=== PATIENT | male | born 1960 | race Caucasian/White ===

== ENCOUNTER 2020-03-21 05:24 | Inpatient (IN) | payer OTHER ==
[~2020-03-21] VITALS: Ht 182.9 cm; Wt 100.7 kg
[~2020-03-21 05:24] MED LIST: ANTIFUNGAL EX; ASPIRIN81 MG OR; ATENOLOL25 MG PO; BACLOFEN10 MG PO; BENADRYL 25MG C25 MG PO; BENADRYL 50MG C50 MG OR; BENADRYL25 MG OR; BUPROPION100 MG PO; CLONAZEPAM1 MG PO; FENOFIBRATE160 MG OR; FLONASE NASAL50 MCG; GABAPENTIN400 MG OR; LEVOTHYROXIN75 MCG PO; MEVACOR40 MG OR; ULTRAM50 M1 OR; ULTRAM50 MG OR; ZOCOR5 MG PO; [UNRECOGNIZED DRUG - MIXTURE] PO; [UNRECOGNIZED DRUG - OTHER] EX
--- NOTE | 2020-03-21 05:30 | NUR ---
BY EMS TO ROOM
--- NOTE | 2020-03-21 06:45 | NUR ---
REPORT TO ANGÉLICA GREGORY.
--- NOTE | 2020-03-21 07:15 | NUR ---
RECIEVED FO RECEIVED FOR CARE. RESTING IN ROOM, CALL FLORES IN REACH. GUARD AT BEDSIDE.
[2020-03-21] MEDS ORDERED: TRAMADOL HCL50 MG PO (07:43)
[2020-03-21 07:45] LABS: HEMATOCRIT 40.2 % (39.0-50.0); IMMATURE GRANULOCYTES 0.7 % (0.0-5.0); MEAN CELL VOLUME 86.5 fL CALC (80.0-100.0); MEAN CORPUSCULAR HGB CONC 32.3 g/dL CAL (32.0-36.0); NEUT# 2.82 thou/uL (1.82-7.42); RED BLOOD COUNT 4.65 mill/uL (4.70-6.10); RED CELL DISTRI WIDTH 13.8 % (11.5-15.5)
[2020-03-21] MEDS ORDERED: TOLNAFTATE XX (07:45)
[2020-03-21] MEDS ORDERED: NEURONTIN250 MG/5 M PO (07:45)
[2020-03-21] MEDS ORDERED: IBUPROFEN600 MG PO (07:47)
[2020-03-21] MEDS ORDERED: VENTOLIN HFA IN (07:48)
[2020-03-21] MEDS ORDERED: FLUOXETINE20 MG PO (07:49)
[2020-03-21] MEDS ORDERED: METOPROL TAR25 MG PO (07:50)
[2020-03-21] MEDS ORDERED: OMEGA-3 FISH1000 MG PO (07:50)
[2020-03-21 07:51] LABS: ALBUMIN 3.8 g/dL (3.2-5.0); ALKALINE PHOSPHATASE 51 u/l (38-126); BILIRUBIN, TOTAL 0.4 mg/dL (0.0-1.4); BUN 28 mg/dL (8-23); BUN/CREATININE RATIO 22 (12-20 (CALC)); CHLORIDE 99 mmol/l (95-108); CREATININE 1.3 mg/dL (0.7-1.3); GFR 56 ML/MIN (>=60 (CALC)); GFR FOR AFR.AMER. > 60 ML/MIN (>=60 (CALC)); SGOT/AST 62 u/l (19-48); TOTAL PROTEIN 7.1 g/dL (6.3-8.2)
[2020-03-21 07:57] LABS: ANION GAP 13 (6-22 (CALC)); CARBON DIOXIDE 25 mmol/l (22-30); SODIUM 132 mmol/l (137-146)
[2020-03-21] MEDS ORDERED: LEVOTHYROXIN125 MCG PO (10:19)
--- NOTE | 2020-03-21 10:36 | NUR ---
PATIENT REPOSITIONED IN BED FOR COMFORT. CALL FLORES IN PLACE,
[2020-03-21 10:59] LABS: URINE BILIRUBIN - DIPSTICK NEGATIVE (NEGATIVE); URINE BLOOD DIPSTICK TRACE-LYSED (NEGATIVE); URINE COLOR YELLOW; URINE GLUCOSE - DIPSTICK NEGATIVE (NEGATIVE); URINE KETONE NEGATIVE (NEGATIVE); URINE LEUK ESTERASE NEGATIVE (NEGATIVE); URINE NITRITE - DIPSTICK NEGATIVE (Negative); URINE PROTEIN - DIPSTICK 100 mg/dL (NEG-TRACE); URINE SPECIFIC GRAVITY 1.025; URINE UROBILINOGEN - DIPSTICK 0.2 E.U./dL (0.2)
[2020-03-21 11:01] LABS: URINE EPITHELIAL CELLS FEW EPI/hpf (0-FEW); URINE MUCUS MODERATE hpf (NONE-FEW); URINE RBC 0-2 RBC/hpf (0-5)
--- NOTE | 2020-03-21 11:49 | NUR ---
patient repostioned. Cardiac monitoring continues. Stable.
--- NOTE | 2020-03-21 12:10 | NUR ---
DR LAW IN TO SEE PATIENT.
--- NOTE | 2020-03-21 12:30 | NUR ---
PATIENT FINISHING LUNCH. CARDIAC MONITORING CONTINUES. PATIENT CONTINUES ON O2 VIA NC [address] LAW. PATIENT AWARE OF PENDING ADMISSION.
--- NOTE | 2020-03-21 13:26 | NUR ---
patient to bedside commode. Incontinent of mod amt of brown,liquid diarrhea. Pericare completed. Bed changed. Patient assisted comfortably in bed. cardiac and o2 sat monitoring continue. Patient stable.
--- NOTE | 2020-03-21 13:40 | NUR ---
report called to [facility] Sid[facility],Nurse receiving in sbar format.
--- NOTE | 2020-03-21 14:16 | NUR ---
Patient calm and sleeping. Monitoring continues. Waiting on transfer to [facility]
--- NOTE | 2020-03-21 14:50 | NUR ---
PT ARRIVED TO UNIT AT 1450 VIA STRETCHER WITH ER STAFF AND 1 GUARD; PLACED ON AIRBORNE/CONTACT PRECAUTIONS DUE TO POSITIVE COVID RESULTS ON 03/17/20. PT STOOD AND TOOK SMALL STEPS TO BED WITH 2 PERSON STAND BY ASSIST; UNSTEADY GAIT. RESPOSITIONED INTO SEMI FOWLERS IN BED WITH LEFT ANKLE SHACKLED TO BED. C/O MILD GENERALIZED ACHES WITH MOVEMENT. RESPIRATIONS EVEN AND SLIGHT LABORED WITH EXERTION ON OXYGEN 4L VIA NC. ORIENTED TO ROOM AND CALL LIGHT SYSTEM. PLAN OF CARE DISCUSSED. PT ENCOURAGED TO VERBALIZE CONCERNS. STATES UNDERSTANDING. SAFETY MEASURES IN PLACE. CALL LIGHT WITHIN REACH.
--- NOTE | 2020-03-21 15:00 | NUR ---
TRANSFERRED TO [facility] S[facility]. PATIENT STABLE.IV'S INTACT UPON ARRIVAL.
[2020-03-21 15:33] VITALS: BP 124/57
[2020-03-21 20:00] VITALS: BP 112/56
[2020-03-21 21:15] VITALS: BP 122/63
--- NOTE | 2020-03-21 21:15 | NUR ---
PT IN SEMI BURTON'S POSITION; A/O X4; NO COMPLAINTS OR CONCERNS VOICED AT THIS TIME; TELE MONITOR IN PLACE; VS OBTAINED, O2 SAT 89% ON 4L NC; ENCOURAGE PT TO COUGH, DEEP BREATHE AND ADJUSTED IN BED; O2 SAT UP TO 94%; ENCOURAGE USE OF CALL LIGHT IF ANY ASSISTANCE IS NEEDED; CALL FLORES WITHIN REACH; WILL CONTINUE TO MONITOR
[2020-03-22] VITALS: BP 109/57
--- NOTE | 2020-03-22 01:08 | NUR ---
PT RESTING WITH EYES CLOSED;NO S/SX OF DISTRESS NOTED; CALL FLORES WITHIN REACH; WILL CONTINUE TO MONITOR.
--- NOTE | 2020-03-22 03:43 | NUR ---
PT RESTING WITH EYES CLOSED; NO S/SX OF DISTRESS NOTED; WILL CONTINUE TO MONITOR
[2020-03-22 04:00] VITALS: BP 119/63
--- NOTE | 2020-03-22 04:27 | NUR ---
REPORT RECEIVED FROM ANGÉLICA RAYA. LAB AT BEDSIDE. PT C/O SORE THROAT. REPORTS WAKING UP "BREATHING HEAVY" BUT DENIES SOB. OXYGEN CONTINUES AT 4L VIA NC. GUARD AT BEDSIDE WITH LAB. PT REMAINS ON AIRBORNE/CONTACT PRECAUTIONS FOR POSITIVE COVID. CALL LIGHT WITHIN REACH.
[2020-03-22 06:05] LABS: HEMATOCRIT 40.8 % (39.0-50.0); IMMATURE GRANULOCYTES 0.6 % (0.0-5.0); MEAN CELL VOLUME 87.2 fL CALC (80.0-100.0); MEAN CORPUSCULAR HGB 27.8 pG CALC (26.0-32.0); MEAN CORPUSCULAR HGB CONC 31.9 g/dL CAL (32.0-36.0); NEUT# 1.96 thou/uL (1.82-7.42); RED BLOOD COUNT 4.68 mill/uL (4.70-6.10); RED CELL DISTRI WIDTH 14.3 % (11.5-15.5)
[2020-03-22 06:13] LABS: ALBUMIN 3.5 g/dL (3.2-5.0); ALKALINE PHOSPHATASE 61 u/l (38-126); BILIRUBIN, TOTAL 0.3 mg/dL (0.0-1.4); BUN 24 mg/dL (8-23); BUN/CREATININE RATIO 29 (12-20 (CALC)); CARBON DIOXIDE 26 mmol/l (22-30); CHLORIDE 103 mmol/l (95-108); CREATININE 0.9 mg/dL (0.7-1.3); GFR > 60 ML/MIN (>=60 (CALC)); GFR FOR AFR.AMER. > 60 ML/MIN (>=60 (CALC)); SGOT/AST 55 u/l (19-48); SODIUM 137 mmol/l (137-146); TOTAL PROTEIN 6.3 g/dL (6.3-8.2)
--- NOTE | 2020-03-22 06:17 | NUR ---
SPO2 UP TO 92% ON 6L VIA NC; PRONE POSITION ENCOURGED AND INSTRUCTED ON TCDB; PT STATES UNDERSTANDING. AM SYNTHROID GIVEN WHOLE WITH WATER.
[2020-03-22 06:28] LABS: ANION GAP 13 (6-22 (CALC)); C-REACTIVE PROTEIN 15.7 mg/dL (0-0.9); POTASSIUM 4.5 mmol/l (3.5-5.1)
--- NOTE | 2020-03-22 07:20 | NUR ---
PT note Patient is screened for PT intervention and no needs are identified at this time
[2020-03-22 07:45] VITALS: BP 113/55
--- NOTE | 2020-03-22 09:03 | NUR ---
DR. ALLEN AND KARINA REEVES AT BEDSIDE.
--- NOTE | 2020-03-22 10:15 | NUR ---
PT AMBULATED TO BATHROOM FOR BOWEL MOVEMENT; REPORTS SEVERAL EPISODES OF DIARRHEA. NOW SITTING UP IN CHAIR; ALERT AND ORIENTED.
--- NOTE | 2020-03-22 10:57 | NUR ---
SPO2 REMAINS BETWEEN 87-90% ON 4L; PT HAS SHALLOW BREATHING AND REPORTS SOB. OXYGEN TITRATED UP TO 5L AT THIS TIME. WILL CONTINUE TO MONITOR.
--- NOTE | 2020-03-22 11:27 | NUR ---
VENTOLIN INH GIVEN FOR SOB WITH GOOD EFFECT. PT TALKATIVE AND PLEASANT. ROCEPHIN COMPLETED AND ZITHROMAX NOW INFUSING WITH OUT DIFFICULTY; IV SITE APPEARS HEALTHY AND FLUSHES.
--- NOTE | 2020-03-22 12:39 | NUR ---
EMS IV SITE DICONTINUED. PT SITTING UP IN CHAIR FOR LUNCH; REQUESTS COFFEE. NO OTHER REQUESTS AT THIS TIME. SPO2 94% ON 6L NC; DURING EXETION AND TALKING SPO2 DECREASES TO 88%. CALL LIGHT WITHIN REACH.
[2020-03-22 15:00] VITALS: BP 117/59
--- NOTE | 2020-03-22 16:33 | NUR ---
HIGH FLOW NASAL CANNULA APPLIED WITH HUMIDIFIED OXYGEN AT 6L.
--- NOTE | 2020-03-22 18:10 | NUR ---
INCENTIVE SPIROMETER PROVIDED; PT GIVEN VERBAL EDUCATION AND INSTRUCTION. SPO2 85% ON 6L HF NC WHILE PERFORMING RETURN DEMONSTRATION. INSPIRATORY VOLUME ALMOST TO 1000; PT GETS VERY SOB DURING DEMONSTRATION WITH SHALLOW BREATHS. PT UP TO CHAIR FOR DINNER; SOB WITH EXERTION, BUT RESPIRATIONS EVEN AND UNLABORED AFTER BREATHING EXERCISES. CALL LIGHT WITHIN REACH.
[2020-03-22 20:00] VITALS: BP 131/56
--- NOTE | 2020-03-22 20:37 | NUR ---
PT MEDICATED ORDERS PROVIDE AND ASSESSMENT COMPLETED AT THIS TIME. PT IS SITTING IN RECLINER. OXYGEN SAT LEVELS 88% ON 6L HIGH-FLOW HUMIDIFIED OXYGEN. PT TAKING DEEP BREATHS THROUGH NC AND OUT PURSED LIPS WITH INSTRUCTION, SAT LEVELS @90% ON 7L HF. IS 1000 DEMONSTRATED AT THIS TIME. NO S/O DISTRESS, PT DENIES FEELING DISTRESSED OR SOB AT THIS TIME. WILL CONTINUE TO MONITOR. REPORTS DIAHRREA EARLIER THIS DAY. PT SHACKLED AT ANKLE AND GUARD X1 ENTERS ROOM WITH ME, BUT REMINAING OUTSIDE OF ROOM WHEN HOSPITAL STAFF LEAVES ROOM.
[2020-03-23] VITALS: BP 131/56
[2020-03-23 04:00] VITALS: BP 86/45
[2020-03-23 05:15] VITALS: BP 106/58
--- NOTE | 2020-03-23 05:17 | NUR ---
PT MEDICATED ORDERS PROVIDE AND URINAL EMPTIED OF 600CC OF DARK YELLOW CLEAR URINE. PT DENIES ANY OTHER NEEDS. OXYGEN NC IS OFF, PT REMINDED TO PLACE OXYGEN BACK ON AND ASKED IF HE NEEDED ASSISTANCE, HE STATED, "I JUST TOOK IT OFF." OXYGEN IS ON WHEN LEAVING THE ROOM
[2020-03-23 05:24] LABS: IMMATURE GRANULOCYTES 0.5 % (0.0-5.0); MEAN CELL VOLUME 86.6 fL CALC (80.0-100.0); MEAN CORPUSCULAR HGB 27.3 pG CALC (26.0-32.0); MEAN CORPUSCULAR HGB CONC 31.6 g/dL CAL (32.0-36.0); NEUT# 8.2 thou/uL (1.82-7.42); RED BLOOD COUNT 4.39 mill/uL (4.70-6.10); RED CELL DISTRI WIDTH 13.5 % (11.5-15.5)
[2020-03-23 05:46] LABS: ALBUMIN 3.3 g/dL (3.2-5.0); ALKALINE PHOSPHATASE 58 u/l (38-126); BILIRUBIN, TOTAL 0.3 mg/dL (0.0-1.4); BUN 26 mg/dL (8-23); BUN/CREATININE RATIO 28 (12-20 (CALC)); C-REACTIVE PROTEIN 6.3 mg/dL (0-0.9); CARBON DIOXIDE 28 mmol/l (22-30); CHLORIDE 104 mmol/l (95-108); CREATININE 0.9 mg/dL (0.7-1.3); GFR > 60 ML/MIN (>=60 (CALC)); GFR FOR AFR.AMER. > 60 ML/MIN (>=60 (CALC)); SGOT/AST 42 u/l (19-48); SODIUM 137 mmol/l (137-146)
[2020-03-23 05:47] LABS: ANION GAP 11 (6-22 (CALC))
[2020-03-23 06:01] LABS: POTASSIUM 5.6 mmol/l (3.5-5.1)
[2020-03-23 08:00] VITALS: BP 163/62
--- NOTE | 2020-03-23 09:00 | NUR ---
PT IS AWAKE, ALERT, ORIENTED X 3. LUNGS CLEAR BUT DIMINISHED, 6 LPM NC. PT DOES BECOME SOB WITH EXERTION PER COVID-19. PT UP WITH MINIMAL ASSIST, CAN AMBULATE TO BR WITHOUT DIFFICULTY.
--- NOTE | 2020-03-23 13:00 | NUR ---
PT SEEN BY DR ALLEN THIS MORNING, NO CHANGES TO PLAN OF CARE. PT CONTINUES OOB IN CHAIR OR IN BED DESIRED.
[2020-03-23 15:15] VITALS: BP 116/51
--- NOTE | 2020-03-23 17:14 | NUR ---
PT WITH GOOD QUESTIONS ABOUT CORONAVIRUS, DISCUSSION LASTING SEVERAL MINUTES. NO DISTRESS, NO SIGNIFICANT SHORTNESS OF BREATH.
[2020-03-23 19:00] VITALS: BP 141/58
--- NOTE | 2020-03-23 20:40 | NUR ---
PT MEDICATED AND ASSESSMENT COMPLETED AT THIS TIME. PT DENIES COUGH, SOB, N/V OR CP. PT IS ON 10L HIGH FLOW NC AT THIS TIME, WILL CONTINUE TO MONITOR FOR OXYGEN SAT LEVELS AND ATTEMPT TO TITRATE OXYGEN RATE DOWN TOLERATED. PT PROVIDED COKE AND SNACK AT THIS TIME. PT IS IN HIGH FOWLERS IN THE BED, REPORTS HAVING SAT UP IN RECLINER FOR "6 HOURS TODAY." DISCUSSED POC WITH PT AND ENCOURAGED HIM TO KEEP MOVING HE HAS BEEN. HE ALSO REPORTS THAT HE WAS UP TAKING A SHOWER EARLIER TODAY. PT APPEARS TO BE FEELING BETTER, BUT CONTINUES TO DESAT WHEN OXYGEN IS LOWERED AT THIS TIME. WILL CONTINUE TO MONITOR, CALL LIGHT W/IN REACH AND PT ENCOURAGED TO CALL NEEDS ARISE.
[2020-03-24] VITALS (12 sets, daily range): BP systolic 113–222; BP diastolic 51–104
--- NOTE | 2020-03-24 01:55 | NUR ---
Pt was sleeping, no s/o distress noted, he awoke to my entering the room and my voice. Oxygen nc was on pt's forehead not in the nare's. Oxygen sat levels 85% on RA at this time. Advised him to place oxygen nc back in nare's, he followed advice. Upon reevaluation of sat levels pt @92% on 9L at this time. Will continue to monitor, but advised pt to be sure and keep oxygen on due to oxygen levels dropping, he verbalized understanding.
--- NOTE | 2020-03-24 05:45 | NUR ---
PT MEDICATED ORDERS PROVIDE. PT WAS SLEEPING, BUT STATES HE IS GOING TO WATCH A LITTLE [place] [employer]IR[employer] NEWS. NO SO DISTRESS NOTED, PT REPORTS FEELING BETTER THIS AM.
--- NOTE | 2020-03-24 08:08 | NUR ---
RECIEVED RPORT FROM ANGÉLICA ALVARES. PT RESTING I SEMI FOWLERS POSITION UPON ENTERING ROOM. INTRODUCED SELF TO PT AND DISCUSSED POC. PT IS A/O X3. ASSESSMENT AND VITALS COMPLETED. RESPIRATIONS ARE SHALLOW. O2 SATING AT 70%. RESIRATORY CALLED. PT NOT IN ANY DISTRESS. HEART RHYTHM NORMAL WITH TELE IN PLACE. BOWEL SOUNDS ARE ACTIVE IN ALL QUADRANTS, LAST REPORTED BM 03/23/2020. RADIAL AND PEDAL PULSES ARE STRONG. #20G IN RAC FLUSHED, SITE APPEARS HEALTHY AND PATENT. SKIN IS COLD AND DRY. PT DENIES ANY PAIN OR NEEDS AT THIS TIME. ALL SAFETY AND ISOLATION PRECAUTIONS AR JONI PLACE WIHT CALL LIGHT IN REACH. WILL CONTINUE TO MONITOR
--- NOTE | 2020-03-24 09:21 | NUR ---
[facility] TO TRANSFER PT TO ICU. CALLED TO RECIEVE BED. PT ASSIGNED TO ICU BED 4. AWAITING TO BE TRANSPORTED. RESPIRATIONS REMIAN SHALLOW ON 10L NC. PT DENIES ANY PAIN AT THIS TIME. ALL SAFETY AND ISOLATION PRECAUTIONS REMAIN IN PLACE WIHT GUARD OUTSIDE DOOR. WILL CONTINUE TO MONITOR
--- NOTE | 2020-03-24 10:21 | NUR ---
PT TRANSFERED TO ICU VIA BED ACCOMPAINED BY CAMPOS AND ALEJA LORD. BEDSIDE REPORT GIVEN TO MELVI COTTRELL
--- NOTE | 2020-03-24 10:25 | NUR ---
pt arrived from ca via bed with staff. c/o chills
--- NOTE | 2020-03-24 12:30 | NUR ---
PT IS RELAXING IN BED WITH NO DISTRESS NOTED. IV SITE IS FREE FROM REDNESS OR EDEAM. GUARD SITTING OUTSIDE OF THE ROOM.
--- NOTE | 2020-03-24 12:45 | NUR ---
PT GUARD HAD RELIEF. PT IS RELAXING IN BED ENCOURAGING TO KEEP O2 ON. SATS ARE NOW COMING BACK TO 89% WAS 72
--- NOTE | 2020-03-24 15:09 | NUR ---
PT FEEING WARM. CHECKED TEMP IS 99.5. ROOM IS WARM AND MANY BLANKETS
--- NOTE | 2020-03-24 15:37 | NUR ---
PT IS SITTING ON THE BSC FOR A CHAIR. INFORMED THIS AUTOMATIC SPLICING MACHINE OPERATOR"THE DR DOESN'T WANT ME TO STAY IN THE BED ALL DAY".
--- NOTE | 2020-03-24 16:23 | NUR ---
PT BACK INTO BED .
--- NOTE | 2020-03-24 18:30 | NUR ---
PT INSISTED ON A SHOWER. EXPLAINED "NO SHOWERS" GAVE BED BATH AND CHANGED SOME LINEN AFTER THE SPILL FROM DINNER. INFORMED PT OF BEING IN ICU AND ALL THE LINES HOOKED UP TO HIM MAKES A RISK FOR HIM TO GO TO THE BATHROOM. HE CAN USE THE BSC. JUST NEEDS TO CALL ON THE CALL FLORES. DRINKS A LOT OF WATER.
--- NOTE | 2020-03-24 20:10 | NUR ---
RECEIVED REPORT FROM DAY NURSE. REPORTED PATIENT MAINTAIN 91-92% O2 SATURATION. PATIENT CURRENTLY OXYGENATING IN THE 80S WITH DIFFICULTY REACHING 90%. PATIENT DOES NOT COMPLAIN OF DIFFICULTY BREATHING, HOWEVER RESPIRATIONS ARE ELEVATED. SKIN COLOR NORMAL ACYANOTIC. CAPILLARY REFILL -3. ON TELEMETRY. POSITIVE FOR COVID. DENIES PAIN. SKIN WARM AND DRY. ROOM WARM. NO EDEMA NOTED. SHACKLED TO BEDSIDE. BED IN LOW POSITION. CALL LIGHT WITHIN REACH.
--- NOTE | 2020-03-24 22:30 | NUR ---
PATIENT RESTING QUIETLY IN BED. NO COMPLAINTS. SKIN COLOR ACYANOTIC. O2 SATURATION STILL FALLING IN THE 80S. PATIENT ABLE TO GET UP TO 92% BUT NOT ABLE TO MAINTAIN FOR SIGNIFICANT TIME. PATIENT INSTRUCTED TO LYE PRONE. BED IN LOW POSITION. CALL LIGHT WITHIN REACH.
[2020-03-25] VITALS (12 sets, daily range): BP systolic 77–145; BP diastolic 34–79
--- NOTE | 2020-03-25 00:10 | NUR ---
RESPIRATORY AT BEDSIDE NON REBREATHER MASK IN PLACE. O2 SATURATIONS NOW 92%. PATIENT COMPLAINED OF ROOM TOO HOT. THERMOMETER TURNED DOWN FOR COMFORT. TEMP FEBRILE. MONITORING.
--- NOTE | 2020-03-25 02:01 | NUR ---
PATIENT OXYGEN SATURATION DROPPED TO 70S. PATIENT LYING SUPINE. INSTRUCTED PATIENT TO LIE PRONE. COMPLIED. OXYGENSATURATION 88-90%. MONITORING.
--- NOTE | 2020-03-25 03:17 | NUR ---
PATIENT WAS LAYING PRONE WITH GOOD EFFECT. 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 OXYGEN SATURATION HOLDING 84-86%. DR. LAW CALLED. NEW ORDERS RECEIVED. WAITING ON PHARMACY TO CLEAR THE ORDER FOR 2MG MORPHINE IV NOW.
--- NOTE | 2020-03-25 04:21 | NUR ---
PATIENT RESTING IN PRONE POSITION. 2 MG MORPHINE IV GIVEN WITH GOOD EFFECT. OXYGEN MAINTAING THE THE 90S. PATIENT REPORTS FEELING BETTER. MONITORING.
[2020-03-25 05:52] LABS: HEMATOCRIT 40.7 % (39.0-50.0); HEMOGLOBIN 12.8 g/dl (14.0-18.0); MEAN CELL VOLUME 87.2 fL CALC (80.0-100.0); MEAN CORPUSCULAR HGB 27.4 pG CALC (26.0-32.0); MEAN CORPUSCULAR HGB CONC 31.4 g/dL CAL (32.0-36.0); NEUT# 6.88 thou/uL (1.82-7.42); RED BLOOD COUNT 4.67 mill/uL (4.70-6.10); RED CELL DISTRI WIDTH 13.4 % (11.5-15.5)
--- NOTE | 2020-03-25 06:21 | NUR ---
PATIENT WAS AWOKE BY PHLEBOTOMY FOR BLOOD DRAW. NOW IN SEMIFOWLER POSITION. REFUSING TO LAY PRONE. SAID HE DID THAT ALL NIGHT. OXYGEN SATURATION HOLDING BETWEEN 83-86% ON NON-REBREATHER. DR. LAW NOTIFIED. MONITORING. PATIENT COLOR ACYANOTIC. PATIENT ALERT AND ORIENTED. BED IN LOW POSITION. CALL LIGHT WITHIN REACH. MONITORING.
[2020-03-25 06:28] LABS: ALBUMIN 3.3 g/dL (3.2-5.0); ALKALINE PHOSPHATASE 56 u/l (38-126); BUN 20 mg/dL (8-23); BUN/CREATININE RATIO 27 (12-20 (CALC)); C-REACTIVE PROTEIN 8.7 mg/dL (0-0.9); CARBON DIOXIDE 24 mmol/l (22-30); CHLORIDE 103 mmol/l (95-108); CREATININE 0.7 mg/dL (0.7-1.3); GFR > 60 ML/MIN (>=60 (CALC)); GFR FOR AFR.AMER. > 60 ML/MIN (>=60 (CALC)); SGOT/AST 45 u/l (19-48); SODIUM 134 mmol/l (137-146); TOTAL PROTEIN 6.3 g/dL (6.3-8.2)
[2020-03-25 06:29] LABS: ANION GAP 12 (6-22 (CALC)); BILIRUBIN, TOTAL 0.7 mg/dL (0.0-1.4)
[2020-03-25 06:30] LABS: POTASSIUM 5.4 mmol/l (3.5-5.1)
--- NOTE | 2020-03-25 06:31 | NUR ---
OXYGEN SATURATION NOT IMPROVING. MD AWARE. RESPIRATORY NOTIFIED.
[2020-03-25 06:52] LABS: IMMATURE GRANULOCYTES 1.7 % (0.0-5.0)
--- NOTE | 2020-03-25 07:20 | NUR ---
REPORT RECEIVED FROM ANGÉLICA GUAMAN. PT RESTING IN BED ON LEFT SIDE WITH EYES CLOSED AND NO SIGNS OF DISTRESS. ONE ANKLE SHACKLED TO BED AND GUARD AT BEDSIDE PT IS FROM [facility]; ON AIRBORNE/CONTACT PRECAUTIONS FOR POSITIVE COVID. RESPIRATIONS EVEN AND SLIGHTLY LABORED ON NONREBREATHER; SPO2 CURRENLTY 93%; OXYGEN DESATURATES DURING ACTIVITY. IV SITE TO RAC APPEARS HEALTHY AND FLUSHES. SR ON WAREHOUSE CLERK. POC REVIEWED. PT ENCOURAGED TO VERBALIZE CONCERNS. STATES UNDERSTANDING. SAFETY MEASURES IN PLACE. CALL LIGHT WITHIN REACH.
--- NOTE | 2020-03-25 08:09 | NUR ---
DR. LAW AT BEDSIDE FOR EVAL. LUNGS ARE CLEAR; HR REGULAR. PT REQUESTING MORE PAIN MEDICATION FOR LOWER BACK PAIN.
--- NOTE | 2020-03-25 09:00 | NUR ---
UP TO BSC FOR AM CARE AND BATH.
--- NOTE | 2020-03-25 09:45 | NUR ---
AM MEDS ADMINISTERED INCLUDING SCHEDULED ULTRAM. ROCEPHIN INFUSING AT THIS TIME.
--- NOTE | 2020-03-25 12:00 | NUR ---
PT PLACED ON 15L HF NC TO EAT LUNCH; SPO2 DECREASED INTO LOW 80'S. SAT UP ON EDGE OF BED TO VOID CLEAR YELLOW URINE. ZITHROMAX INFUSING AT THIS TIME.
--- NOTE | 2020-03-25 13:44 | NUR ---
PT REQUESTING INHALER FOR SOB; SPO2 88-94%; RESTLESS IN BED AND REMOVES OXYGEN AT TIMES TO TAKE SIPS OF WATER.
--- NOTE | 2020-03-25 13:52 | NUR ---
03/24/20 PT note Patient is seen for therapeutic exercises as before including pulmonary toilet and CPT with chest wall stretching and DBE. He increased his incentive spirometry to 1200m but absilutely cannot hold his breath > 4 secs. He was transferred to ICU but remains stable . He did desaturate to 80s with movement in bed
--- NOTE | 2020-03-25 15:00 | NUR ---
MORPHINE GIVEN FOR 6/10 LOWER BACK PAIN. REMDESIVIR COMPLETED AT THIS TIME. PT REQUESTING SOMETHING COLD TO DRINK. NO OTHER REQUESTS OR CONCERNS AT THIS TIME. CALL LIGHT WITHIN REACH.
--- NOTE | 2020-03-25 16:18 | NUR ---
PT RESTING IN BED PRONE; SPO2 93% WHILE IN THIS POSITION. VSS.
--- NOTE | 2020-03-25 17:24 | NUR ---
PT WITH OXYGEN OFF; INSTRUCTED TO LEAVE OXYGEN IN PLACE AT ALL TIMES. ALSO ENCOURAGED TO REST PRONE OR ON SIDE; COMPLIANT AT THIS TIME. CALL LIGHT WITHIN REACH.
--- NOTE | 2020-03-25 19:38 | NUR ---
PT RESTING IN BED, NO SIGNS OF DISTRESS NOTED, RESP EVEN AND UNLABORED. PT ALERT AND ORIENTED X3, DISCUSSED POC, PT IS ON A NON-REBREATHER 15L. PT MEDICATED PER MAR, ENCOURAGED PT PRONE POSITION, VERBALIZED UNDERSTANDING. ASSESSMENT COMPLETED, CALL LIGHT IN REACH,CONTINUE TO MONITOR.
--- NOTE | 2020-03-25 21:36 | NUR ---
PT RESTING IN BED, C/O PAIN 12/14 TO LOWER BACK PT MEDICATED FOR PAIN, ENCOURAGED PT TO LAY PRONE MUCH HE COULD TOLERATE. PT SPO2 91% AT THIS TIME. CALL LIGHT IN REACH,CONTINUE TO MONITOR.
--- NOTE | 2020-03-25 23:14 | NUR ---
PT RESTING IN BED WITH EYES CLOSED, NO SIGNS OF DISTRESS NOTED, RESP EVEN AND UNLABORED. CALL LIGHT IN REACH,CONTINUE TO MONITOR.
[2020-03-26] VITALS (18 sets, daily range): BP systolic 97–146; BP diastolic 45–76
--- NOTE | 2020-03-26 01:32 | NUR ---
NOTED PT SATS IN THE 70's, RT CALLED TO BEDSIDE, PT PLACED IN PRONE POSITION, RT PLACED PT ON 10L NC AND CONTINUED 15L NR. PT DENIES ANY SOB, NO SIGNS OF DISTRESS NOTED, RESP EVEN AND UNLABORED, CALL LIGHT IN REACH,CONTINUE TO MONITOR.
--- NOTE | 2020-03-26 02:08 | NUR ---
CALL MADE TO RT FOR BLOOD GAS, DUE TO PT SATS 87-88% ON BOTH NC AND NON REBREATHER, PER RT WAIT SINCE PT "DOES THIS", INFORMED RT THAT IF PT DROPS ANY LOWER REPAIR SERVICE CLERK WILL NEED THE BLOOD GAS. PT IN PRONE POSITION, DENIES ANY SOB AT THIS TIME, CONTINUE TO MONITOR.
--- NOTE | 2020-03-26 03:24 | NUR ---
PT RESTING IN BED PRONE POSITION, NO SIGNS OF DISTRESS NOTED, RESP EVEN AND UNLABORED. SPO2 92% PT C/O PAIN 12/14 PT MEDICATED FOR PAIN. CALL LIGHT IN REACH,CONTINUE TO MONITOR.
--- NOTE | 2020-03-26 06:27 | NUR ---
PT RESTING IN BED, NO SIGNS OF DISTRESS NOTED, RESP EVEN AND UNLABORED. CALL LIGHT IN REACH,CONTINUE TO MONITOR.
[2020-03-26 06:29] LABS: HEMATOCRIT 40.1 % (39.0-50.0); HEMOGLOBIN 12.7 g/dl (14.0-18.0); IMMATURE GRANULOCYTES 3.2 % (0.0-5.0); MEAN CELL VOLUME 86.8 fL CALC (80.0-100.0); MEAN CORPUSCULAR HGB 27.5 pG CALC (26.0-32.0); MEAN CORPUSCULAR HGB CONC 31.7 g/dL CAL (32.0-36.0); NEUT# 6.36 thou/uL (1.82-7.42); RED BLOOD COUNT 4.62 mill/uL (4.70-6.10); RED CELL DISTRI WIDTH 13.4 % (11.5-15.5)
[2020-03-26 06:43] LABS: ALBUMIN 3.3 g/dL (3.2-5.0); ALKALINE PHOSPHATASE 66 u/l (38-126); BILIRUBIN, TOTAL 0.6 mg/dL (0.0-1.4); BUN 18 mg/dL (8-23); BUN/CREATININE RATIO 22 (12-20 (CALC)); CHLORIDE 97 mmol/l (95-108); CREATININE 0.8 mg/dL (0.7-1.3); GFR > 60 ML/MIN (>=60 (CALC)); GFR FOR AFR.AMER. > 60 ML/MIN (>=60 (CALC)); POTASSIUM 5.1 mmol/l (3.5-5.1); SGOT/AST 40 u/l (19-48); SODIUM 134 mmol/l (137-146); TOTAL PROTEIN 6.3 g/dL (6.3-8.2)
[2020-03-26 07:10] LABS: ANION GAP 12 (6-22 (CALC)); C-REACTIVE PROTEIN > 27.0 mg/dL (0-0.9); CARBON DIOXIDE 30 mmol/l (22-30)
--- NOTE | 2020-03-26 07:36 | NUR ---
pt awake in bed; pt offers no complaints; assessment completed at this time; pt alert and oriented; denies pain; no n/v noted at present; resp labored; lungs diminished throughout; skin color wnk; o2 per nc at 10 fi sukh and 100% NRB; o2 sats noted in 80s; Dr Vallejo on unit and notified; design teacher cough noted; pt lying on right side at this time; prone positioning explained; hr reg; strong pulses; no edema noted; sr on monitor; abd soft/distended with bs present; no bm noted per conventional mortgage underwriter; no urine to inspect at this time; urinal at bedside; #20 to rac saline locked; no redness or edema noted at site; plan of care/ intubation or bipap/ am meds explained; pt is a resident of [facility]; guard x1 outside door; pt cuffed to bed via left ankle; call light within reach; will continue to monitor
--- NOTE | 2020-03-26 08:27 | NUR ---
awake in bed; o2 via NRB and NC; iv intact; pt continues to lay on right side; call light within reach; will continue to monitor
--- NOTE | 2020-03-26 08:51 | NUR ---
PT at bedside
--- NOTE | 2020-03-26 09:17 | NUR ---
PT note Patient sats are 70 when I enter the room. He is struggling to breathe. I sat him up in the bed and performed tapotment on his lung bases. He desaturated to the 60s. I could not get him fully prone as he was panicking but he did stay to his side . His sats improved to the 78 when I left the room but he continues to struggle. RR in the 40s Am Pac is 6 given his activity intolerance
--- NOTE | 2020-03-26 10:08 | NUR ---
pt lying on left side; o2 and NRB intact; o2 sat 60s; RT Dave notified; iv intact; sr on monitor; call light within reach; will continue to monitor
--- NOTE | 2020-03-26 10:30 | NUR ---
pt placed on bipap with settings of 16/10, rate 16; 100% FiO2; o2 sats slowly trending up; will continue to monitor
--- NOTE | 2020-03-26 10:58 | NUR ---
o2 sat 92% of 100% FiO2/ bipap
--- NOTE | 2020-03-26 12:09 | NUR ---
resting in bed with eyes closed; no apparent distress noted; iv intact and patent; bipap intact; o2 sat 91%; call light within reach; will continue to monitor
--- NOTE | 2020-03-26 14:30 | NUR ---
awake in bed; bipap intact and maintained; iv patent; meds infusing; sr on monitor; call light within reach; will continue to monitor
--- NOTE | 2020-03-26 16:00 | NUR ---
awake in bed; RT present at bedside for o2 sat of 81% while on bipap; iv intact; sr on monitor; [facility] staff x1 outside of door; call light within reach; will continue to monitor
--- NOTE | 2020-03-26 17:55 | NUR ---
awake in bed; no apparent distress noted; bipap intact and maintained; sr on monitor; [facility] staff x1 outside of door; call light within reach
--- NOTE | 2020-03-26 19:30 | NUR ---
RESTING IN BED IN HIGH FOWLERS POSITION. ALERT AND ORIENTED. RESP SHALLOW, SLT LABORED. PATIENT ON BIPAP-SETTINGS IP-16, EP-10, RATE 16, O2 100% BREATH SOUNDS DIMINISHED THROUGHOUT LUNG CHANDRA. O2 SAT 89% IV IN RAC #20 SITE BENIGN. TECHNICAL ARCHITECT SHOWS SR. DISCUSSED PLAN OF CARE. EXPLAINED IMPORTANCE OF PRONING TO IMPROVE OXYGENTATION. PATIENT STATED HE WOULD TRY LATER. CALL FLORES INR EACH.
--- NOTE | 2020-03-26 21:00 | NUR ---
PATIENT GIVEN HS PO MEDS-IMMEDIATELY DESTAS TO 70'S WHEN BIPAP REMOVED. O2 SAT BACK UP TO MID 80'S WITH MASK REPLACED. AGAIN HIGHLY ENCOURAGED PATIENT TO ATTMEPT PRONING.
--- NOTE | 2020-03-26 22:00 | NUR ---
RAC SALINE LOCK FLUSHED AND PATENT. PATIENT AGREEABLE TO PRONING AT THIS TIME. ASSISTED PATIENT TO TURN ONTO HIS STOMACH. O2 SAT IMMEDIATELY INCREASED TO THE UPPER 90'S.
--- NOTE | 2020-03-26 23:20 | NUR ---
PATIENT TURNED FROM [PRONE POSITION TO RIGHT SIDE. O2 SAT 92%
[2020-03-27] VITALS (21 sets, daily range): BP systolic 97–145; BP diastolic 45–83
--- NOTE | 2020-03-27 00:10 | NUR ---
VSS. RESTING QUIETLY. O2 SAT 90-92% RESP RATE 27-31. REMAINS ON BIPAP SETTINGS UNCHANGED. SR ON MONITOR.
--- NOTE | 2020-03-27 02:00 | NUR ---
PATIENT ASLEEP. HAS BEEN COOPERATIVE WITH USE OF BIPAP. MAINTAINING O2 SATS 90% SR ON MONITOR.
--- NOTE | 2020-03-27 04:04 | NUR ---
PATIENT RESTING WITH EYES CLOSED. OPENS EYES TO NAME. EMN HAD REMOVED BP CUFF AND PULSE OX, BOTH REAPPLIED. PATIENT RESTING ON LEFT SIDE. O2 SAT 88-89% AGAIN EXPLAINED IMPORTANCE OF PRONING.
--- NOTE | 2020-03-27 06:10 | NUR ---
PATIENT MEDICATED FOR C/O BACK PAIN. TURNED PRONE AT THIS TIME. O2 SAT UP TO 95% SR ON MONITOR.
--- NOTE | 2020-03-27 07:35 | NUR ---
pt awake in bed; no apparent distress noted; pt offers no complaints; assessment completed at this time; pt alert and oriented; offers no complaints of pain; no n/v noted; resp even and unlabored; exertional sob; lungs diminished throughout; skin color; bipap 16/10, rate 16, 100% FiO2; pension examiner cough noted; hr reg; strong pulses; no edema noted; sr on monitor; abd distended with bs present; no bm noted per promotion writer; pt admits to voiding without complication; urinal at bedside; #20 flushed and patent to rac; no redness or edema noted at site; cpt requesting breakfast; covid prec continued; plan of care/ am meds explained; call light within reach; will continue to monitor
--- NOTE | 2020-03-27 07:52 | NUR ---
bipap removed per RT; pt placed on 12L hi sukh NC; pt requesting breakfast/ sitting on the side of bed eating; will continue to monitor
--- NOTE | 2020-03-27 07:53 | NUR ---
BIPAP STANDBY. PLACED ON 12L HFNC
--- NOTE | 2020-03-27 08:05 | NUR ---
guard summoned staff; pt noted laid back in bed; responsive; facial cyanosis noted; o2 sat noted at 18% with good waved form; assist back to bed x3 staff; bipap immed reapplied; with o2 sats slowly trending up; RT called stat and at bedside;
--- NOTE | 2020-03-27 08:38 | NUR ---
Dr Vallejo present at bedside to assess pt and discuss plan of care
--- NOTE | 2020-03-27 09:13 | NUR ---
84% o2 sat on bipap; pt proned; o2 sat noted at 93% bipap proned
--- NOTE | 2020-03-27 10:07 | NUR ---
pt has removed bipap machine and yelling; desats very quickly to 30s; RT at bedside to reapply; will continue to monitor
--- NOTE | 2020-03-27 10:40 | NUR ---
PT PLACED ON VAPOTHERM 40L @ 100%. -
--- NOTE | 2020-03-27 10:50 | NUR ---
RT at bedside; vapotherm placed 40L 100% at 37 degrees
--- NOTE | 2020-03-27 11:40 | NUR ---
IV SITE TO RAC REMOVE AT THIS TIME WITH CATHETER INTACT,NEW #20G TO RIGHT HAND STARTED ON 2ND ATTEMPT BY THIS WRITTER;PT TOLERATED WELL.
--- NOTE | 2020-03-27 11:44 | NUR ---
PT. NOT TOLERATING VAPOTHERM. PLACED BACK ON BIPAP.
--- NOTE | 2020-03-27 11:53 | NUR ---
[facility] facility called per brief writer as per request; spoke with ANGÉLICA Hagan; update provided
--- NOTE | 2020-03-27 12:15 | NUR ---
awake in bed; no apparent distress noted; bipap intact and maintained with 100% FiO2; pt requesting bipap mask be removed/ declined; call light within reach; will continue to monitor
--- NOTE | 2020-03-27 12:54 | NUR ---
pt construction rep light requesting water; staff at bedside to assist with po fluids; pt declined; pt now requesting ice cream/ declined per staff d/t respiratory status
--- NOTE | 2020-03-27 13:13 | NUR ---
pt clip on sunglasses assembler light; requesting to eat; pt desat to low 50%-60% quickly once bipap is removed; resp status vs food explained; pt requesting this junior technical writer full name; pt requesting to speak with a coal handling supervisor; diaphoresis noted; accucheck of 127; pt requested per staff to move up in bed; pt refusing; bipap remains intact with 100% FiO2 sat of 84%
--- NOTE | 2020-03-27 13:46 | NUR ---
nursing danny Huggins present at bedside
--- NOTE | 2020-03-27 14:10 | NUR ---
awake in bed; supine; declining prone position; iv intact; bipap intact and maintained; sr on monitor; call light within reach; will continue to monitor
--- NOTE | 2020-03-27 15:15 | NUR ---
complete/ assisted bed bath and linen change administered; oral care with mouth; lip balm applied; powder supplied as requested; lotion applied to back as per request; deodorant supplied as per request; repositioned per self; meds explained and administered; apple juice given and tolerated well as per request; will continue to monitor
--- NOTE | 2020-03-27 15:31 | NUR ---
pt has removed bipap; RT at bedside
--- NOTE | 2020-03-27 16:15 | NUR ---
pt resting on right side with eyes closed; no apparent distress noted; bipap intact; iv intact; guard x1 outside of door; call light within reach; will continue to monitor
--- NOTE | 2020-03-27 18:07 | NUR ---
resting on right side asleep; no apparent distress noted; iv intact; bipap intact and maintained; sr on monitor; call light within reach; will continue to monitor
--- NOTE | 2020-03-27 19:30 | NUR ---
RESTING ON RIGHT SIDE WITH EYES CLOSED. RESP SHALLOW, NON-LABORED AT REST. O2 SAT 88-91%
--- NOTE | 2020-03-27 20:30 | NUR ---
AWAKE ON ROUNDS. RESP SHALLOW-SLT LABORED EVEN AT REST. REMAINS ON BIPAP-SETTINGS- IP 18, EP 10, RATE 16, O2 100% BREATH SOUNDS DIMINISHED THROUGHOUT LUNG CHANDRA. NO PERIPHERAL EDEMA, PULSES PALPABLE. SALINE LOCK INTACT IN RH, SITE BENIGN. MERCHANDISING DIRECTOR SHOWS SR. DISCUSSED PLAN OF CARE, REINFORCED IMPORTANCE OF PRONING. PATIENT DOES TURN HIMSELF FROM SIDE TO SIDE. REQUEST SOMETHING FOR PAIN. CALLL FLORES IN REACH.
--- NOTE | 2020-03-27 21:06 | NUR ---
MED PASS BY Lucina PETERSEN/ANGÉLICA. PATIENT MEDICATED FOR PAIN REQUESTED EARLIER.
[2020-03-28] VITALS (22 sets, daily range): BP systolic 95–161; BP diastolic 46–78
--- NOTE | 2020-03-28 00:10 | NUR ---
O2 SAT 86-88% REMAINS ON BIPAP SETTINGS UNCHANGED. VSS. SR ON MONITOR. TURNING SELF FROM SIDE TO SIDE IN BED. SHANITA HAS NOT PRONED TONIGHT ALTHOUGH HAS BEEN ENCOURAGED TO DO SO.
--- NOTE | 2020-03-28 01:00 | NUR ---
ASLEEP ON LEFT SIDE. O2 SAT 86-88%
--- NOTE | 2020-03-28 02:10 | NUR ---
C/O LOW BACK PAIN. MEDICATED WITH MORPHINE ORDERED FOR PAIN. ASSISTED PATIENT TO TURN ONTO STOMACH. O2 SAT GRADUALLY PICKED UP FROM 86 TO 93%
--- NOTE | 2020-03-28 03:00 | NUR ---
C/O SORE THROAT GIVEN THROAT LOZENGE.
--- NOTE | 2020-03-28 04:00 | NUR ---
PATIENT REMOVED BIPAP MASK FOR A DRINK OF WATER. DESATS QUICKLY TO THE 70'S. REAPPLIED MASK, SATS UP TO 88-89% VSS. SR ON MONITOR.
[2020-03-28 05:58] LABS: HEMATOCRIT 37.1 % (39.0-50.0); IMMATURE GRANULOCYTES 1.2 % (0.0-5.0); MEAN CELL VOLUME 85.9 fL CALC (80.0-100.0); MEAN CORPUSCULAR HGB 27.8 pG CALC (26.0-32.0); MEAN CORPUSCULAR HGB CONC 32.3 g/dL CAL (32.0-36.0); NEUT# 6.85 thou/uL (1.82-7.42); RED BLOOD COUNT 4.32 mill/uL (4.70-6.10); RED CELL DISTRI WIDTH 13.2 % (11.5-15.5)
--- NOTE | 2020-03-28 06:00 | NUR ---
ASLEEP. VSS. SR ON MONITOR. SALINE LOCK INTACT IN RH.
[2020-03-28 06:34] LABS: ALBUMIN 2.8 g/dL (3.2-5.0); ALKALINE PHOSPHATASE 76 u/l (38-126); BILIRUBIN, TOTAL 0.5 mg/dL (0.0-1.4); BUN 23 mg/dL (8-23); BUN/CREATININE RATIO 34 (12-20 (CALC)); CARBON DIOXIDE 31 mmol/l (22-30); CHLORIDE 98 mmol/l (95-108); CREATININE 0.7 mg/dL (0.7-1.3); GFR > 60 ML/MIN (>=60 (CALC)); GFR FOR AFR.AMER. > 60 ML/MIN (>=60 (CALC)); SGOT/AST 54 u/l (19-48); SODIUM 133 mmol/l (137-146); TOTAL PROTEIN 5.9 g/dL (6.3-8.2)
--- NOTE | 2020-03-28 06:38 | NUR ---
MORPHINE 2 MG IVP FOR C/O PAIN.
--- NOTE | 2020-03-28 07:10 | NUR ---
pt awake in bed; no apparent distress noted; assessment completed at this time; pt alert and oriented; admits to back pain/ prev medicated; no n/v noted; resp slightly labored; lungs diminished throughout; skin color wnl; bipap intact with 100% FiO2; prt lying on right side and sat are 90%; channel machine operator cough noted; hr reg; strong pulses; no edema noted; sr on monitor; abd soft with bs present; no bm noted per writer technical publications; no urine to inspect at this time; urinal at bedside; #20 to rh saline locked; flushed and patent; no redness or edema noted at site; plan of care/ am meds explained; pt demanding to be removed from bipap; o2 sat explained and risk of removing bipap explained; pt request to speak with table games shift manager; pt continues to speak rudely to staff; writer technical publications has informed pt that I will speak with resp in regards to attempting vapotherm only for meals; call light within reach; will continue to monitor
[2020-03-28 07:15] LABS: ANION GAP 9 (6-22 (CALC)); POTASSIUM 5.4 mmol/l (3.5-5.1)
[2020-03-28 07:27] LABS: C-REACTIVE PROTEIN > 27.0 mg/dL (0-0.9)
--- NOTE | 2020-03-28 07:35 | NUR ---
RT Herminio present at bedside; RT has explained the importance of continuing bipap; risk of removing bipap for breakfast explained in full detail; pt has been explained the risk of resp failure/arrest/coding/and being placed on ventilator due to removing bipap for breakfast; pt argumentive with staff and demanding to be removed from bipap for breakfast; pt to be placed on vapotherm per RT
--- NOTE | 2020-03-28 07:48 | NUR ---
RT Herminio remain outside of room; o2 of 56% explained; pt yelling at staff rudely stating "we are rushing him"; vapotherm remains intact; pt declining bipap and wishes to continue with breakfast
--- NOTE | 2020-03-28 07:58 | NUR ---
bipap reapplied per RT Herminio
--- NOTE | 2020-03-28 08:06 | NUR ---
resting in bed supine; bipap intact; sr on monitor; iv intact; call light within reach; will continue to monitor
--- NOTE | 2020-03-28 09:30 | NUR ---
Dr Vallejo present at bedside to assess pt and discuss plan of care
--- NOTE | 2020-03-28 09:36 | NUR ---
[facility] facility called this singer songwriter; spoke with Peg; update provided
--- NOTE | 2020-03-28 10:20 | NUR ---
awake in bed; bipap intact and maintained; sr on monitor; iv intact; call light within reach; will continue to monitor
--- NOTE | 2020-03-28 10:57 | NUR ---
awake; admits to pain relief however pt now requesting "demerol" for pain; risk of resp depression by using morphine along with additional narcotics explained; will continue to monitor
--- NOTE | 2020-03-28 12:15 | NUR ---
resting in bed with eyes closed; no apparent distress noted; resp unlabored; bipap intact and maintained; sr on monitor; call light within reach; will continue to monitor
--- NOTE | 2020-03-28 13:35 | NUR ---
o2 sats noted at 71-72% on 100% bipap; perfect waveform noted;; Dr Valljeo present on unit; pt instructed to prone; this adjusto writer operator and RT Herminio at bedside to assist with proning; pt agrumentive with staff about telling him "what to do" but agree to prone; intubation explained in great detail; will continue to monitor
--- NOTE | 2020-03-28 14:03 | NUR ---
resting with eyes closed; proned; iv intact; sr on monitor; call light within reach; will continue to monitor
--- NOTE | 2020-03-28 14:55 | NUR ---
pt optimization specialist light; in to assess pt; pt yelling at nursing staff; pt has removed bipap; o2 sat 60s; pt noted diaphorectic; pt noted to have urinated in the bed; pt states "you think this is a game, it take you 30 minutes to answer my light"; covid prec explained; bipap reapplied; complete linen change and bath administered; #20 started to lw x1 attempt; #20 removed from rh with catheter tip intact; pt repositioned to right side; will continue to monitor
--- NOTE | 2020-03-28 16:10 | NUR ---
awake requesting somethink to drink; juice provided; bipap intact and maintained; sr on monitor; will continue to monitor
--- NOTE | 2020-03-28 17:01 | NUR ---
pt orthodontist light; requesting to be removed from bipap to eat dinner
--- NOTE | 2020-03-28 18:00 | NUR ---
awake sitting on side of bed eating dinner; vapotherm in place; RT remains at bedside; o2 sat 70s
--- NOTE | 2020-03-28 18:17 | NUR ---
pt has completed dinner; RT at bedside to reapply bipap; settings as before; iv intact; sr on monitor; call light within reach
--- NOTE | 2020-03-28 19:45 | NUR ---
AWAKE ON ROUNDS. PATIENT IS RUDE AND DEMANDING. RINGS CALL FLORES AND WHEN ANSWERED AND TOLD THE NURSE IS COMING WILL RING REPEATEDLY. IT HAS BEEN EXPLAINED TO PATIENT REPEATEDLY OVER THE PAST THREE DAYS THAT IT TAKES A FEW MINUTES FOR NURSE TO DON PPE AND THAT WE WILL NOT ENTER THE ROOM WITHOUT IT. ALERT AND ORIENTED. RESP SHALLOW AND LABORED. REMAINS ON BIPAP SETTINGS CHANGED PER RT WADNER-IP 20, EP 12, O2 100% RATE 20. BREATH SOUNDS DIMINISHED THROUGHOUT LUNG CHANDRA. 02 SAT 85% NO PERIPHERAL EDEMA, PULSES PALPABLE. ANKLES SHACKLED TOGETHER. CMS ADEQUATE TO EXTREMITIES. IV IN LW SITE BENIGN-FLUSHED AND PATENT. PATIENT MEDICATED WITH MORPHINE 2 MG IVP ORDERED FOR C/O BACK PAIN. ASSISTED PATIENT TO TURN TO PRONE POSITION. SATS PICKED UP TO 91% IN PRONE POSITON. BOX PRINTING MACHINE OPERATOR SHOWS SR. CORDON IN ATTENDANCE.
--- NOTE | 2020-03-28 21:00 | NUR ---
O2 SAT RUNNING 85-89% PATIENT CONTINUES RESTING IN PRONE POSITION.
--- NOTE | 2020-03-28 22:00 | NUR ---
PATIENT RESTING ON HIS BACK IN SEMI-FOWLERS POSITION-O2 SAT 83% SR ON MONITOR.
--- NOTE | 2020-03-28 23:00 | NUR ---
O2 SAT 77-78% ENCOURAGE PRONING. WILL CONTINUE TO MONITOR CLOSELY.
[2020-03-29] VITALS (81 sets, daily range): BP systolic 47–217; BP diastolic 23–92
--- NOTE | 2020-03-29 | NUR ---
O2 SAT CONTINUE TO RUN IN THE 70'S. CALLED RT TO EVALUATE PATIENT. BP AND HR AND RHYTHM STABLE. MEDICATED WITH 2 MG MORPHINE IVP FOR C/O BACK PAIN. ASSISTED PATIENT TO PRONE POSITION WITH GRADUAL INCREASE IN O2 SAT TO 89-91%
--- NOTE | 2020-03-29 01:00 | NUR ---
VSS. O2 SAT 89%
--- NOTE | 2020-03-29 02:00 | NUR ---
O2 SAT SHOWING 65% PATIENT FOUND WITH BIPAP MASK OFF-O2 SAT FURTHER DROPPED INTO THE 40'S. RT CALLED. SHANITA NAILBEDS CYANOTIC, PATIENT STATES "I HAD A NIGHTMARE AND PULLED IT OFF." ASSISTED PATIENT TO PRONE POSITION, O2 SAT SLOWLY INCREASED. RT MADE ADJUSTMENT TO INSPIRATORY TIME ON BIPAP.
--- NOTE | 2020-03-29 02:30 | NUR ---
O2 SAT 94%
--- NOTE | 2020-03-29 03:00 | NUR ---
PATIENT RESTING ON RIGHT SIDE. VSS. O2 SAT CURRENTLY 94% SR ON MONITOR.
--- NOTE | 2020-03-29 04:00 | NUR ---
SB-SR ON MONITOR. PATIENT LYING IN SEMI FOWLERS POSITON. O2 SAT 86% BP STABLE.
--- NOTE | 2020-03-29 05:00 | NUR ---
MORPHINE 2 MG IVP FOR C/O BACK PAIN. PATIENT TURNED TO PRONE POSITON WITH ENCOURAGMENT. SATS GRADUALLY INCREASE TO 90-94%
--- NOTE | 2020-03-29 05:45 | NUR ---
VSS. O2 SAT 95% PATIENT RESTING IN PRONE POSITION. SR ON MONITOR.
--- NOTE | 2020-03-29 06:45 | NUR ---
PATIENT REMOVED BIPAP AND TRYING TO GET OOB. ON ENTERING ROOM PATIENT IS LYING ON HIS STOMACH SIDEWAYS ACROSS THE PATIENT. REPOSITIONED ONTO HIS BACK WITH 3 PERSON ASSIST. COLOR VERY DUSKY, O2 SAT 6. NO RESP EFFORT. SB ON MONITOR 32-40'S. BAGGING WITH 100% CODE BLUE CALLED.
--- NOTE | 2020-03-29 07:07 | NUR ---
0646-CODE BLUE CALLED OVERHEAD. 0650-DR. KEYS, ER PHYSICIAN AT BEDSIDE. 0657-ETOMIDATE GIVEN FOR RSI 0658-ROCURONIUM GIVEN FOR RIS 0700-INTUBATION COMPLETE ET TUBE 8.0 22 AT LIP 0707-BLOOD PRESSURE OBTAINED WITH DOPPLER; SBP IS 70.
[2020-03-29 07:18] LABS: HEMATOCRIT 43.3 % (39.0-50.0); HEMOGLOBIN 13.3 g/dl (14.0-18.0); IMMATURE GRANULOCYTES 1.4 % (0.0-5.0); MEAN CELL VOLUME 90.8 fL CALC (80.0-100.0); MEAN CORPUSCULAR HGB 27.9 pG CALC (26.0-32.0); MEAN CORPUSCULAR HGB CONC 30.7 g/dL CAL (32.0-36.0); NEUT# 8.7 thou/uL (1.82-7.42); RED BLOOD COUNT 4.77 mill/uL (4.70-6.10); RED CELL DISTRI WIDTH 13.3 % (11.5-15.5)
--- NOTE | 2020-03-29 07:20 | NUR ---
BAZAN PLACED TO GRAVITY; OG TUBE PLACED AND PLACEMENT CONFIRMED WITH AUSCULTATION OF AIR ADMINISTRATION.
--- NOTE | 2020-03-29 07:30 | NUR ---
LEVOPHED DRIP AND DIPRIVAN DRIP INITIATED AND INFUSING AT THIS TIME INTO PERIPHERAL LINES IN LAC AND LW ALONG WITH NORMAL SALINE. VENT SETTINGS ON ASSIST CONTRL, RATE 22, TV 500, FIO2 100%, PEEP 12. BLOOD PRESSURE NOW 146/2 HR 80.
--- NOTE | 2020-03-29 07:47 | NUR ---
SPO2 45%; RT AT BEDSIDE ADUSTING VENT SETTINGS. DR. LAW ALSO AT BEDSIDE. VERBAL ORDER FOR 1 AMP OF SODIUM BICARB AND THEN BEGIN DRIP.
--- NOTE | 2020-03-29 07:56 | NUR ---
ABG GIVEN TO DR LAW. VENT SETTINGS CHANGED. RR TO 22, PEEP TO 12.
--- NOTE | 2020-03-29 08:00 | NUR ---
BILATERAL SOFT WRIST RESTRAINTS APPLIED WITH WRITTEN ORDER IN PLACE. 2 FINGERS ABLE TO FIT BETWEEN WRIST AND RESTRAINT; GOOD CSM TO HANDS; TIED WITH QUICK RELEASE KNOTS. WILL CONTINUE TO CLOSELY MONITOR.
--- NOTE | 2020-03-29 08:03 | NUR ---
BLOOD PRESSURE 158/70 HR 106; LEVOPHED TIRATED DOWN TO 6 MCG/MIN; NS NOW AT KVO.
--- NOTE | 2020-03-29 08:05 | NUR ---
CODE BLUE CALLED ON PT. 0649. PT INTUBATED BY DR. KEYS AT 0700. ET TUBE SIZE 8.0. SECURED 22 AT LIP. PT PLACED ON ORDERED SETTINGS 18/500/8/100%. ABG DRAWN BY RT CASSIDY. RESULTS RECORDED.
--- NOTE | 2020-03-29 09:30 | NUR ---
DRIPS FREQUENTLY ADJUSTED TO OBTAIN ADEQUATE SEDATION WITH STABLE BLOOD PRESSURE. PROPOFOL INFUSING AT 30 MCG/KG/MIN AND LEVOPHED 10 MCG/MIN.
--- NOTE | 2020-03-29 09:33 | NUR ---
DR. CARUSO AT BEDSIDE FOR CENTRAL LINE PLACEMENT; TRIPLE LUMEN RIGHT FEMORAL NOW IN PLACE. ALL INFUSING NOW INFUSING AT THIS SITE.
[2020-03-29 09:51] LABS: ALKALINE PHOSPHATASE 103 u/l (38-126); BILIRUBIN, TOTAL 0.5 mg/dL (0.0-1.4); BUN 26 mg/dL (8-23); BUN/CREATININE RATIO 25 (12-20 (CALC)); CHLORIDE 98 mmol/l (95-108); GFR > 60 ML/MIN (>=60 (CALC)); GFR FOR AFR.AMER. > 60 ML/MIN (>=60 (CALC)); POTASSIUM 5.1 mmol/l (3.5-5.1); SODIUM 136 mmol/l (137-146); TOTAL PROTEIN 6.3 g/dL (6.3-8.2)
[2020-03-29 09:54] LABS: ANION GAP 20 (6-22 (CALC)); CARBON DIOXIDE 23 mmol/l (22-30); SGOT/AST 128 u/l (19-48)
[2020-03-29 10:04] LABS: C-REACTIVE PROTEIN 25.8 mg/dL (0-0.9)
--- NOTE | 2020-03-29 10:57 | NUR ---
XRAY AT BEDSIDE FOR CENTRAL LINE AND OG TUBE PLACEMENT VERIFICATION. DIPRIVAN AND LEVOPHED DRIPS CONTINUE TO BE MANIPULATED; VITAL SIGNS OBTAINED EVERY 5 MINUTES.
--- NOTE | 2020-03-29 11:49 | NUR ---
RT AT BEDSIDE FOR ABG.
--- NOTE | 2020-03-29 12:04 | NUR ---
LINENS CHANGED AND PT REPOSITIONED INTO HIGH FOWLERS. PO MEDS CRUSHED AND GIVEN IN OG TUBE; TUBE CLAMPED AT THIS TIME.
--- NOTE | 2020-03-29 12:30 | NUR ---
G REDRAWN BY RT; RESULTS CALLED TO DR. LAW. VERBAL ORDER TO HOLD SODIUM BICARB DRIP; DRIP STOPPED. VENT SETTINGS ADJUSTED BY RT; RATE TO 24 AND FIO2 90%.
--- NOTE | 2020-03-29 12:37 | NUR ---
CHANGED SET VENT RR TO 24. CHANGED FIO2 TO 90%.
--- NOTE | 2020-03-29 13:26 | NUR ---
CHANGED FIO2 TO 95%
--- NOTE | 2020-03-29 15:00 | NUR ---
PROPOFOL INFUSING AT 50 MCG/KG/MIN AND LEVOPHED INFUSING AT 5 MCG/MIN. VITALS ARE STABLE AT THIS TIME.
--- NOTE | 2020-03-29 15:59 | NUR ---
MILK OF MAG GIVEN FOR CONSTIPATION ALONG WITH SCHEDULED KLONIPIN VIA OG TUBE. PT SITTING IN HIGH FOWLERS WITH OG TUBE CLAMPED FROM SUCTION.
--- NOTE | 2020-03-29 16:05 | NUR ---
REQUEST FOR TRANSFER SENT TO [facility]; SPOKE WITH HERMAN AT TRANSFER CENTER. FACE SHEET AND PROGRESS NOTES FAXED.
--- NOTE | 2020-03-29 16:30 | NUR ---
1000 ML OF URINE EMPTIED FROM BAZAN.
--- NOTE | 2020-03-29 17:50 | NUR ---
NEW PROPOFOL BOTTLE STARTED AND TUBING REPLACED AT THIS TIME. GUARD REMAINS OUTSIDE OF DOORWAY; CURTAIN OPEN FOR VISUALIZATION OF PATIENT.
--- NOTE | 2020-03-29 18:38 | NUR ---
ROOM ASSIGNMENT RECEIVED FROM [facility]; ICU 1203. SPOKE WITH RIAN FROM [employer] [facility] TRANSPORT[facility]. ETA 30 MINUTES. HERMAN WITH [facility] TRANSFER CENTER NOTIFIED.
--- NOTE | 2020-03-29 19:16 | NUR ---
TELEPHONE CONSENT RECEIVED FROM [facility]. 2 NURSE VERIFICATION ON CONSENT FORM. REPORT GIVEN TO ANGÉLICA GIVENS.
--- NOTE | 2020-03-29 19:34 | NUR ---
SPOKE WITH PATRICIA AT [facility] , NURSE UNAVAILABLE FOR TELEPHONE REPORT WILL CALL BACK SHORTLY.
--- NOTE | 2020-03-29 19:51 | NUR ---
[facility] TRANSFER PT OUT VIA STRETCHER ON VENT WITH IV'S INFUSING.
--- NOTE | 2020-03-29 20:01 | NUR ---
TELEPHONE REPORT GIVEN TO NURSE HAWLEY AT [facility].
--- NOTE | 2020-03-30 06:39 | NUR ---
03/29/20 PT note Patient assisted with PROM all extremtities as well as positioning. 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 I did manage to get him sidelying on his right. He is basically flaccid and did not respnd to questions or even tactile cues Am Pac is 6
== END 2020-03-29 19:51 | DRG 208 ==
LOC: ED 05:24 → ED-I 08:30 → ED 08:38 → ICU 08:48 → MS2 08:48 → ED-I 08:48 → MS2 13:43 → ICU 03-24 10:22
PROVIDERS: Emergency Medicine; Nurse Practitioner Family; ADMIT Internal Medicine; ATTEND Internal Medicine
PROC: XW033E5 Introduction of Remdesivir Anti-infective into Peripheral Vein, Percutaneous Approach, New Technology Group 5 (ICD-10-PCS; principal; 2020-03-22)
PROC: 5A09457 Assistance with Respiratory Ventilation, 24-96 Consecutive Hours, Continuous Positive Airway Pressure (ICD-10-PCS; 2020-03-26)
PROC: 5A1935Z Respiratory Ventilation, Less than 24 Consecutive Hours (ICD-10-PCS; 2020-03-29)
PROC: 0BH17EZ Insertion of Endotracheal Airway into Trachea, Via Natural or Artificial Opening (ICD-10-PCS; 2020-03-29)
PROC: 06HY33Z Insertion of Infusion Device into Lower Vein, Percutaneous Approach (ICD-10-PCS; 2020-03-29)
PROC: 0T9B70Z Drainage of Bladder with Drainage Device, Via Natural or Artificial Opening (ICD-10-PCS; 2020-03-29)
DX: U07.1 COVID-19 (principal); J12.89 Other viral pneumonia; J96.01 Acute respiratory failure with hypoxia; E87.4 Mixed disorder of acid-base balance; I10 Essential (primary) hypertension; E03.9 Hypothyroidism, unspecified; E78.5 Hyperlipidemia, unspecified; F41.1 Generalized anxiety disorder; F32.9 Major depressive disorder, single episode, unspecified; G62.9 Polyneuropathy, unspecified; M54.9 Dorsalgia, unspecified; G89.29 Other chronic pain
CPT/HCPCS: J1650; Q9967; S0164